=== PATIENT | male | born 1960 | race Caucasian/White ===

== ENCOUNTER 2024-01-03 10:40 | Inpatient (IN) | payer BC, SELFPAY ==
[2024-01-03 10:46] VITALS: BP 155/79
[2024-01-03 11:14] VITALS: BMI 27.3
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
[2024-01-03 11:25] LABS: % Basophils 0.7 % (0-2); % Eosinophils 1.1 % (0-6); % Immature Granulocytes 0.4 % (0-0.5); % Lymphocytes 12.2 % (20.5-51.1); % Monocytes 5.3 % (1.7-9.3); % Neutrophils 80.3 % (42.2-75.2); Absolute Basophils 0.1 10^3/uL (0-0.2); Absolute Eosinophils 0.1 10^3/uL (0-0.7); Absolute Lymphocytes 1.3 10^3/uL (1.2-3.4); Absolute Monocytes 0.6 10^3/uL (0.1-0.6); Absolute Neutrophils 8.3 10^3/uL (1.4-6.5); Hematocrit 45.8 % (39.0-52.0); Hemoglobin 14.8 g/dL (13.0-18.0); Mean Corp Hgb Conc. 32.3 g/dL (33.0-37.0); Mean Corpuscular Volume 89.6 fL (80.0-94.0); Mean Platelet Volume 8.9 fL (7.4-10.4); Nucleated Red Blood Cells % 0 % (-); Platelet Count 301 10^3/uL (130-400); Red Blood Cell Count 5.11 10^6/uL (4.70-6.10); Red Cell Dist. Width 12.8 % (11.5-14.5); White Blood Cell Count 10.4 10^3/uL (4.8-10.8)
[2024-01-03 11:58] LABS: Glycohemoglobin (HgbA1c) 5.5 % (4.0-5.6)
[2024-01-03 12:01] LABS: ALT (SGPT) 46 U/L (0-50); AST (SGOT) 55 U/L (17-59); Albumin 4.1 g/dl (3.5-5.0); Alkaline Phosphatase 134 U/L (38-126); Blood Urea Nitrogen 7 mg/dl (9-20); Calcium 9.6 mg/dl (8.4-10.2); Carbon Dioxide 26 mmol/L (22-30); Chloride 104 mmol/L (98-107); Estimated Creatinine Clearance > 125 ml/min; Glucose 121 mg/dl (70-99); HDL Cholesterol 78 mg/dl; LDL Cholesterol, Calculated 76 mg/dl; Magnesium 2.3 mg/dl (1.6-2.3); Potassium 4.3 mmol/L (3.5-5.1); Sodium 134 mmol/L (135-145); Total Bilirubin 0.8 mg/dl (0.2-1.3); Total Cholesterol 182 mg/dl (50-199); Total Protein 6.8 g/dl (6.3-8.2); Triglyceride 141 mg/dl (10-149); Very Low Density Lipoprotein 28 mg/dl (0-30); eGFR > 60.00
[2024-01-03 12:02] LABS: INR 0.91; PT 12.3 Sec (11.4-14.6)
[2024-01-03 12:03] LABS: APTT 32.5 Sec (23.4-35.0)
--- NOTE | 2024-01-03 12:52 | W.PN.UPDATE ---
Update Note
Progress Note Update
Pt seen and examined
Cath reviewed
Very pleasant 63 y/o male with multiple comorbidities admitted with CP and NSTEMI to [facility]
Cath with 60% left main, ostial cx and 90% rca lesions. Echo with preserved EF
I agree with plans for cabg to lad/om/pda
Risks, complications, benefits and alternatives reviewed in detail with pt
All questions answered
Pt appears to understand and wishes to proceed
Plan for cabg 01.04.24
--- NOTE | 2024-01-03 12:58 | CON.CAR ---
Addendum entered and electronically signed by Sami Gracia MD 01/03/24 15:40:
I saw and examined the patient.
The EXPLOSIVE ORDNANCE MANAGER's note was reviewed and I agree with the note.
Comment: 63 y/o male with hypertension, dyslipidemia, deprssion, prostate CA who is transferred from [facility] with plans for CABG for his multivessel CAD, after he presented with reports of chest pain with abnormal troponin (NSTEMI).
Reportedly cath showed multivessel CAD and he is here for CABG.
-CABG tomorrow
-High intensity statin
-Multivitamin given daily alcohol use
Original Note:
Consultation
Consultation Request
Date/Time Consultation Requested: 01/03/24 1144
Date/Time Consultation Performed: 01/03/24 1245
Requesting Provider: Evelin Miller NP
Performing Provider: Dorota LEARY for Dr. Gracia
Reason for Consultation: CAD
Medical History
-
Chief Complaint: chest discomfort
History of Present Illness:
63 y/o male with hypertension, dyslipidemia, deprssion, prostate CA who is transferred from [facility] with plans for CABG for his multivessel CAD, after he presented with reports of chest pain with abnormal troponin (NSTEMI). Records
from [facility] not in chart at the time of my assessment, so info in chart was from patient and CT surgery information. He is in no distress at the time of my assessment.
Past Medical History
Past Medical History: Cancer (prostate), HTN, Hypercholesterolemia and Psychiatric (depression)
Social History
Tobacco: Former Smoker (now chew tobacco)
Alcohol: Daily
Living: With Family (mom)
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
Family History
Family History: CAD (MOM 62, DAD 66)
Allergies / Home Medications
Allergy/AdvReac Type Severity Reaction Status Date / Time
No Allergy Information Allergy Unverified 01/03/24 10:44
Available
�Medication �Instructions �Recorded �Confirmed �Type
amlodipine 5 mg-benazepril 20 mg 1 cap PO DAILY 01/03/24 01/03/24 History
capsule
atorvastatin 20 mg tablet 20 mg PO DAILY 01/03/24 01/03/24 History
lorazepam 1 mg tablet 1 mg PO DAILY PRN anxiety 01/03/24 01/03/24 History
Review of Systems
-
History Source: Patient
All other systems: Negative unless noted
Cardiac: Chest Pain
Physical Exam
Vital Signs
Temp Pulse Resp BP Pulse Ox
98.7 F 75 18 155/79 97
01/03/24 10:46 01/03/24 10:46 01/03/24 10:46 01/03/24 10:46 01/03/24 10:46
Lab Results
01/03/24 11:14
01/03/24 11:14
Impression / Plan
-
CAD: severe as below
-plan is for CABG tomorrow
-continue ASA, statin
-pre-op testing pending, including EKG
-follow telemetry, BP's
Dyslipidemia:
-on statin
-lipids ordered
Hypertension:
-continue amlodipine and monitor
Data Reviewed
-
EKG: Other (EKG is pending)
Medical Tests (Nuc Med, Echo etc): Report Reviewed by me (Cardiac cath: left heart cath he was found to have 40% Ostial stenosis, 75% proximal and mid LAD stenosis, 90% stenosis of the ostial and proximal left circ, and 90% mid RCA with 70% mid to
distal junction stenosis.) and Other (echo report- normal EF with apical and septal wall hypokinesis. First echo showed a possible LV thrombus but with additional imaging it no longer was present.)
Labs: Labs Reviewed by me
--- NOTE | 2024-01-03 14:07 | CM ---
Chart reviewed. 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 The patient has a stairglide in the home. Patient has a sister who lives close to help care for his mother. Reviewed
preoperative and postoperative instructions and restrictions, along with showering guidelines. Patient is agreeable to a home visit by CT Transitional RN. Plan is for the patient to return home with CT Transitional RN
[2024-01-03 15:11] VITALS: BP 147/87
[2024-01-03 15:14] VITALS: BP 143/81
--- NOTE | 2024-01-03 15:17 | W.PN.UPDATE ---
Update Note
Progress Note Update
Procedure Type:�Isolated CABG
PERIOPERATIVE OUTCOME ESTIMATE %
Operative Mortality 0.575%
Morbidity & Mortality 3.78%
Stroke 0.725%
Renal Failure 0.266%
Reoperation 1.97%
Prolonged Ventilation 1.81%
Deep Sternal Wound Infection 0.133%
Long Hospital Stay (>14 days) 1.62%
Short Hospital Stay (<6 days)* 72.9%
Clinical Summary
Planned Surgery: Isolated CABG, Urgent, First cardiovascular surgery
Demographics: 63 year old, male, 83.8kg, 175cm, BMI: 27.4 kg/m�
Lab Values: Creatinine: 0.6 mg/dL, Hematocrit: 45.8%, WBC Count: 10.4 10�/�L, Platelet Count: 631404 cells/�L
Substance Abuse: Former smoker, Alcohol use: >=8 drinks/week
Risk Factors / Comorbidities: Hypertension, Family Hx of CAD
Cardiac Status: Ejection Fraction = 50%
Coronary Artery Disease: 3 vessels diseased, Left Main Stenosis >=50%, Non-ST Elevation MD, MD: 1 to 7 Days
Valve Disease: Trivial/Trace MR, Trivial/Trace TR
[2024-01-03] MEDS: ATIVAN 1 MG PO (15:43)
[2024-01-03 16:17] LABS: Hepatitis C Antibody Negative (Negative)
--- NOTE | 2024-01-03 17:05 | PTCARENOTE ---
taken via stretcher for pre op testing. NSR. HR 80-90s. anxious. ativan given as ordered. No reports of pain. for OR tomorrow am at 0830.
[2024-01-03] MEDS: LIPITOR 20 MG PO (18:02)
[2024-01-03 20:14] VITALS: BP 101/70
[2024-01-03 20:16] VITALS: BP 99/58
[2024-01-03] MEDS: THIAMINE INJECTION 200 MG IV (20:27)
[2024-01-03] MEDS: COLACE 100 MG PO (20:27)
[2024-01-03] MEDS: SENOKOT 8.59999999999999964 MG PO (20:27)
[2024-01-03 22:17] LABS: Urine Albumin Negative (Neg - Trace); Urine Bilirubin Negative (Negative); Urine Character Clear (Clear); Urine Color Yellow; Urine Glucose Negative (Negative); Urine Ketone Negative (Negative); Urine Leukocyte Negative (Negative); Urine Nitrite Negative (Negative); Urine Occult Blood Negative (Negative); Urine Specific Gravity 1.015 (<1.030); Urine Urobilinogen Negative (Neg - 1+)
[2024-01-03 22:38] VITALS: BP 123/88
[2024-01-03] MEDS: NSS (PRESERVATIVE FREE) 0.5 ML IV (22:40)
[2024-01-03] MEDS: ATIVAN 1 MG IV (22:40)
--- NOTE | 2024-01-03 23:47 | PTCARENOTE ---
Pt clipped and showered with 4% chlorhexidine. c/o chest pressure lasting only a few mins when bent over to wash legs in shower.. Pt states discomfort was a light pressure at left chest non radiating; rated a 3 out of 10. PA aware. At HS pt
requesting something to sleep and for anxiety. Ativan given via new iv site LFA. Sinus on telemetry.
[2024-01-04] VITALS (13 sets, daily range): BP systolic 74–136; BP diastolic 56–85; BMI 27.0
[2024-01-04] MEDS: LOPRESSOR 25 MG PO (05:51)
[2024-01-04] MEDS: PROTONIX 40 MG PO (05:51)
[2024-01-04] MEDS: MAGNESIUM OXIDE 500 MG PO (05:51)
[2024-01-04] MEDS: BACTROBAN 2% OINTMENT 1 APPLIC NASAL ×2 (05:52→20:19)
--- NOTE | 2024-01-04 06:13 | PTCARENOTE ---
Pt completed second shower with Chlorhexidine soap and wiped down with CHG wipes. preop medications given. am labs sent results pending. Pt denies chest discomfort this morning. Pt aware to remain npo.
[2024-01-04 06:29] LABS: Blood Urea Nitrogen 8 mg/dl (9-20); Carbon Dioxide 24 mmol/L (22-30); Chloride 106 mmol/L (98-107); Estimated Creatinine Clearance > 125 ml/min; Glucose 93 mg/dl (70-99); Potassium 3.9 mmol/L (3.5-5.1); Sodium 134 mmol/L (135-145); eGFR > 60.00
--- NOTE | 2024-01-04 07:36 | W.CVOR.SURPR ---
CVOR Surgeon Immed Pre Op
-
I have examined this patient prior to performance of the scheduled procedure.
The patient's condition is unchanged from the time of the dictated/written History and
Physical and the patient is able to undergo the scheduled procedure.
--- NOTE | 2024-01-04 08:32 | PTCARENOTE ---
Pt seen by Dr. Smith. Pt taken to OR @08:20, no change from last assessment.
[2024-01-04 08:43] LABS: ACT+ - POC 87 Seconds (82-134)
[2024-01-04 08:47] LABS: B.E. - POC -3.4 mmol/L; Glucose - POC 99 mg/dl (65-99); HCO3 - POC 22 mmol/L (21-29); Hematocrit - POC 42 % PCV (42-52); Hemodilution- POC Yes; Hemoglobin Calculated - POC 14.3; Ionized Calcium - POC 1.16 mmol/L (1.12-1.27); O2 Saturation %Calculated-POC 99.9 5 (92-96); PCO2 - POC 39 mmHg (35-45); PO2 - POC 359 mmHg (80-100); Potassium - POC 3.6 mmol/L (3.6-5.0); Sodium - POC 144 mmol/L (135-145); pH - POC 7.36 (7.35-7.45)
[2024-01-04] MEDS: COLACE PO (08:57)
[2024-01-04] MEDS: THIAMINE INJECTION IV (08:58)
[2024-01-04] MEDS: SENOKOT PO (08:58)
[2024-01-04] MEDS: FOLVITE PO (08:58)
[2024-01-04] MEDS: LEXAPRO PO (08:58)
[2024-01-04 09:25] LABS: Urine Albumin Negative (Neg - Trace); Urine Bilirubin Negative (Negative); Urine Character Clear (Clear); Urine Glucose Negative (Negative); Urine Ketone Negative (Negative); Urine Leukocyte Negative (Negative); Urine Nitrite Negative (Negative); Urine Occult Blood Negative (Negative); Urine Specific Gravity 1.015 (<1.030); Urine Urobilinogen Negative (Neg - 1+)
[2024-01-04 09:30] LABS: Urine Color Yellow
--- NOTE | 2024-01-04 10:16 | CM ---
Patient in OR today for planned CABG.
Reviewed initial assessment. Pt. resides w/ mother in a private, multi level home (+ stair glide). 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
Functionally, patient is indep/ w ADLs, mobility.
Anticipated DC plan is for home w/ CT Transitional Care RN.
CM to follow.
[2024-01-04 10:39] LABS: ACT+ - POC 517 Seconds (82-134)
[2024-01-04 11:18] LABS: B.E. - POC 0.7 mmol/L; Glucose - POC 132 mg/dl (65-99); HCO3 - POC 25 mmol/L (21-29); Hematocrit - POC 33 % PCV (42-52); Hemodilution- POC Yes; Hemoglobin Calculated - POC 11.2; Ionized Calcium - POC 0.98 mmol/L (1.12-1.27); O2 Saturation %Calculated-POC 99.9 5 (92-96); PCO2 - POC 38 mmHg (35-45); PO2 - POC 253 mmHg (80-100); Potassium - POC 4.3 mmol/L (3.6-5.0); Sodium - POC 139 mmol/L (135-145); pH - POC 7.42 (7.35-7.45)
[2024-01-04 11:22] LABS: ACT+ - POC 603 Seconds (82-134)
[2024-01-04 11:40] LABS: B.E. - POC -1.4 mmol/L; Glucose - POC 151 mg/dl (65-99); HCO3 - POC 23 mmol/L (21-29); Hematocrit - POC 34 % PCV (42-52); Hemodilution- POC Yes; Hemoglobin Calculated - POC 11.7; Ionized Calcium - POC 0.99 mmol/L (1.12-1.27); PCO2 - POC 37 mmHg (35-45); PO2 - POC 476 mmHg (80-100); Sodium - POC 141 mmol/L (135-145)
[2024-01-04 11:44] LABS: ACT+ - POC 482 Seconds (82-134)
[2024-01-04 12:14] LABS: B.E. - POC -4.9 mmol/L; Glucose - POC 87 mg/dl (65-99); HCO3 - POC 21 mmol/L (21-29); Hematocrit - POC 32 % PCV (42-52); Hemodilution- POC Yes; Hemoglobin Calculated - POC 10.9; Ionized Calcium - POC 1.29 mmol/L (1.12-1.27); O2 Saturation %Calculated-POC 95.4 5 (92-96); PCO2 - POC 43 mmHg (35-45); PO2 - POC 86 mmHg (80-100); Potassium - POC 3.7 mmol/L (3.6-5.0); Sodium - POC 142 mmol/L (135-145)
[2024-01-04 12:15] LABS: ACT+ - POC 107 Seconds (82-134)
--- NOTE | 2024-01-04 12:20 | W.PN.UPDATE ---
Update Note
Progress Note Update
63-year-old male presenting to [facility] with chest pain was found to have multivessel disease and was transferred for a CABG with Dr. Smith today.
IV fluids: 2600
U.O.:� 550
UF:� 1400
Blood:�None
Wires:�V wires
Inotropes:�None
Pressors:�Levophed
Sedatives:�Precedex
�
NEURO: sedated on precedex, pupils +1mm B/L
RESP: #8OT @22cm> 12/600/60/5Lungs clear B/L. 2 mediastinal (50cc on arrival) and R/L pleural (65cc on arrival) chest tubes to -20cm suction. Sanguineous drainage
CV: RRR +S1, S2, no S3, no�rub, no murmur. Dermabond to median sternotomy.
ABD: round, soft, no BS
EXT: no edema, +2/4 DP pulses B/L, no femoral bruit, RLE DEE wrap intact; Left radial A-line intact
: Ag with clear yellow urine
�
A/P: POD #0 s/p CABG x3 (COATES-LAD, QUE off COATES to OM1, SVG to PDA)
LURDES: EF�approximately 45% with mild/moderate global hypokinesis.
- wean and extubate
-Monitor chest tube output
-Follow-up postoperative labs
-Start aspirin 81 mg 6 hours postop.
�
# acute surgical blood loss anemia-expected
- trend CBC
�
# Hyperglycemia
- insulin infusion x 24h
�
# Hyperlipidemia
- resume�statin when tolerating oral medications
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
--- NOTE | 2024-01-04 13:16 | W.PN.CT.SURG ---
CT Surgery Operative Note
-
Pre-op Diagnosis: left main, 3 vcad
exertional angina
Post-op Diagnosis: Same
Procedure: Cabg x 3
andre- lad
renee- om
svg - pda
on pump
RSF
Primary Surgeon: Sarah
Assisting Surgeons: Asmita, Payton - leg and chest
Specimen: None
Cultures: None
Complications / Blood Loss: None
Findings: Ketan revealed global lv dysfunction ef 35, post revasc 45, no new wma
good conduit
thickend causey throughout
adequate targets
[2024-01-04 13:33] LABS: Hematocrit 35.6 % (39.0-52.0); Hemoglobin 11.8 g/dL (13.0-18.0); Platelet Count 261 10^3/uL (130-400)
[2024-01-04 13:35] LABS: HCO3 22.7 mmol/L (21-28); O2 Saturation % 97.7 % (94-98); PCO2 42 mmHg (35-48); PO2 158 mmHg (83-108); Potassium 3.8 mMOL/L (3.5-5.1); Sodium 142 mMOL/L (136-145); pH 7.34 (7.35-7.45)
[2024-01-04 13:37] LABS: Glucose - Point of Care 96 mg/dl (70-99)
[2024-01-04 13:43] LABS: INR 1.37; PT 16.6 Sec (11.4-14.6)
[2024-01-04 13:53] LABS: Blood Urea Nitrogen 8 mg/dl (9-20); Estimated Creatinine Clearance > 125 ml/min; Glucose 95 mg/dl (70-99); Magnesium 2.5 mg/dl (1.6-2.3)
[2024-01-04] MEDS: KCL 50 IV (13:53)
[2024-01-04] MEDS: NSS 500 IV (13:54)
[2024-01-04] MEDS: TYLENOL PO (13:55)
[2024-01-04] MEDS: ANCEF 10 IV ×2 (13:55)
[2024-01-04] MEDS: NEURONTIN PO ×2 (13:55→16:18)
--- NOTE | 2024-01-04 13:57 | PTCARENOTE ---
Received pt from CVOR team. Intubated and sedated per anesthesia. #8 ETT at 22 cm rt lip. SIMV 40% rate 12 tv 600 psv 5 peep 5 pulse ox 99%. Bloody secretions noted with oral care. SR with first degree AV block on monitor. Epicardial wire to
temporary pacemaker box, however box off on arrival. Chest tubes x 3 to - 20 cm suction. No crepitus or air leak noted. Abdomen benign. Ag draining clear yellow urine in large amounts. Sternal Incision, well approximated and surgical glue
present. RT groin puncture site intact. RT SVG with Harpal wrap intact. Pulses palpable. Insulin and Levophed infusing on arrival.
[2024-01-04] MEDS: OFIRMEV 100 IV (14:08)
[2024-01-04] MEDS: DILAUDID 0.5 MG IV (14:08)
[2024-01-04] MEDS: VERSED 0.5 MG IV ×2 (14:17→15:01)
--- NOTE | 2024-01-04 14:21 | PTCARENOTE ---
Peep increased to [address] Smith at this time . Pt agitated and waking up, not following commands at present. Precedex increased per MD order, and versed administered at this time. Safe environment promoted.
[2024-01-04 14:37] LABS: Glucose - Point of Care 130 mg/dl (70-99)
--- NOTE | 2024-01-04 14:44 | W.PN.CD ---
Addendum entered and electronically signed by Sami Gracia MD 01/04/24 16:07:
I saw and examined the patient.
The INVESTMENTS MANAGER's note was reviewed and I agree with the note.
Comment: 63M with HTN, HLD, and prostate ca transferred from [facility] for CABG evaluation.
- wean sedation and inotropes
- continued post cabg care
Original Note:
Today's Communication / Plan
-
Follow telemetry
Extubation per CTS
Impression / Plan
-
BACKGROUND: 63M with HTN, HLD, and prostate ca transferred from [facility] for CABG evaluation
NSTEMI
CAD S/P CABG x 3 (COATES-LAD, QUE-OM, SVG-PDA) on 01/04/[address] Smith
-EF 35%, post 45% without new WMA
-EKG stable new iRBBB
-Follow telemetry
Dyslipidemia
-LDL above goal, atorvastatin increased to 40mg daily
HTN, agents on hold, follow BP
SUBJECTIVE:
Intubated and sedated on mechanical ventilation
Physical Exam
Vital Signs/Labs
Vital Signs
Temp Pulse Resp BP Pulse Ox
98.9 F 89 14 136/75 99
01/04/24 14:23 01/04/24 14:15 01/04/24 14:15 01/04/24 07:32 01/04/24 14:27
01/03/24 01/04/24 01/05/24
06:59 06:59 06:59
Actual Weight 83 kg
01/04/24 13:22
PT 16.6 Sec (11.4-14.6) H 01/04/24 13:22
INR 1.37 01/04/24 13:22
APTT 32.0 Sec (23.4-35.0) 01/04/24 13:22
Magnesium 2.5 mg/dl (1.6-2.3) H 01/04/24 13:22
Triglycerides 141 mg/dl (10-149) 01/03/24 11:14
LDL Cholesterol, Calc 76 mg/dl 01/03/24 11:14
VLDL Cholesterol, Calc 28 mg/dl (0-30) 01/03/24 11:14
HDL Cholesterol 78 mg/dl 01/03/24 11:14
Physical Exam
Constitutional: No acute distress
EENT: Anicteric and Moist mucous membranes
Cardiovascular: Pedal edema is absent, S1S2 is normal and Murmur/rub/gallop absent
Respiratory: Lungs clear to auscul.
GI: Soft, Distention absent and Flat
Neuro/Psych: Other (sedated)
Other: Skin (warm and dry)
Data Reviewed
-
Date of Service: January 04, 2024
[2024-01-04] MEDS: ALBUMIN 5% 250 IV ×3 (15:39→15:43)
[2024-01-04 15:57] LABS: Glucose - Point of Care 130 mg/dl (70-99)
--- NOTE | 2024-01-04 16:01 | PTCARENOTE ---
Pt sustaining wakefulness more often. Following commands. Decision to attempt CPAP made. Will obtain ABG as per protocol and follow.
[2024-01-04] MEDS: LIPITOR PO (16:18)
[2024-01-04 16:40] LABS: Hematocrit 30.7 % (39.0-52.0); Hemoglobin 10.3 g/dL (13.0-18.0); Platelet Count 218 10^3/uL (130-400)
[2024-01-04 16:42] LABS: B.E. -2.7 mmol/L; HCO3 22.6 mmol/L (21-28); Ionized Calcium 1.11 mMOL/L (1.15-1.33); O2 Saturation % 98.1 % (94-98); PCO2 40 mmHg (35-48); PO2 119 mmHg (83-108); Potassium 4.2 mMOL/L (3.5-5.1); pH 7.36 (7.35-7.45)
[2024-01-04 16:58] LABS: Glucose - Point of Care 100 mg/dl (70-99)
--- NOTE | 2024-01-04 17:02 | PTCARENOTE ---
Cpap gas withing parameters. Pt extubated at 1700 to 6 L NC. Bp remains labile. Levophed titrated as needed.
[2024-01-04] MEDS: CALCIUM CHLORIDE 10% SYRINGE 50 ML IV (17:06)
[2024-01-04] MEDS: CALCIUM CHLORIDE 10% SYRINGE 50 MG IV (17:06)
[2024-01-04] MEDS: ROXICODONE 5 MG PO ×2 (17:10→21:15)
[2024-01-04] MEDS: LOW STRENGTH ASPIRIN 81 MG PO (17:10)
[2024-01-04 18:04] LABS: Glucose - Point of Care 76 mg/dl (70-99)
[2024-01-04] MEDS: ANCEF 5 IV (18:05)
[2024-01-04 19:08] LABS: Glucose - Point of Care 103 mg/dl (70-99)
[2024-01-04 20:02] LABS: Glucose - Point of Care 101 mg/dl (70-99)
[2024-01-04] MEDS: THIAMINE INJECTION 200 MG IV (20:19)
[2024-01-04] MEDS: SENOKOT-S 1 TABLET PO (20:19)
--- NOTE | 2024-01-04 20:30 | PTCARENOTE ---
Patient received resting in bed watching television. Patient A+A+Ox3. No neurological deficits noted. No c/o headache, dizziness or lightheadedness. Calm and cooperative with care. No s/s of respiratory distress. O2 at 4L via NC. SaO2 98%.
No c/o SOB. I.S. 1500 ml. Three chest tubes - Intact and patent - Mediastinal and Right and Left Pleural - 10-30 ml red drainage - No air leak, tidaling or crepitus noted. Chest tube dressing intact. Sinus Rhythm. Heart rate 70's. V- Wire to
box. Levophed gtt 4 mcq/min (15 ml/hr). CVP 10. No c/o chest pain, pressure or discomfort. Normoactive bowel sounds. No BM. No c/o nausea. No vomiting. Patient tolerating ice chips and sips of water. Ag catheter - Temperature sensing -
Intact and patent - Outputs as documented. Positive, palpable pulses. No c/o back or flank pain. Right I.J. Cordis with [place] catheter. Left radial arterial line. Sternal incision - Intact - Surgical adhesive. Right groin intact. Right knee
incision with surgical adhesive - Coban Harpal Wrap intact. Assessment as documented.
[2024-01-04 21:05] LABS: Glucose - Point of Care 101 mg/dl (70-99)
[2024-01-04] MEDS: FLEXERIL 5 MG PO (21:15)
[2024-01-04] MEDS: SODIUM BICARBONATE 50 MEQ IV (21:55)
[2024-01-04] MEDS: CALCIUM CHLORIDE 10% SYRINGE 60 MG IV (22:07)
[2024-01-04 22:19] LABS: Glucose - Point of Care 95 mg/dl (70-99)
[2024-01-04] MEDS: NEURONTIN 100 MG PO (22:29)
[2024-01-04] MEDS: TYLENOL 1000 MG PO (22:29)
[2024-01-04] MEDS: LEVOPHED 250 IV (22:35)
--- NOTE | 2024-01-04 23:30 | PTCARENOTE ---
Roxicodone 5 mg PO for pain management. 1 AMP Sodium Bicarbonate 50 mEq IV administered per PA order. Calcium chloride 1,000mg/50ml over 1hr administered per PA order. Levophed gtt titrated off. O2 at 3L via NC. SaO2 97%. Patient resting in
bed without difficulty. Assessment as documented.
[2024-01-05] VITALS (46 sets, daily range): BP systolic 79–123; BP diastolic 45–69; BMI 27.1
[2024-01-05 00:19] LABS: Glucose - Point of Care 94 mg/dl (70-99)
[2024-01-05] MEDS: DILAUDID 0.25 MG IV (00:25)
--- NOTE | 2024-01-05 01:34 | W.PN.CT ---
Today's Communication / Plan
-
Plan:
-No major issues overnight. Hemodynamically and neurologically intact
-Successfully extubated 01/04/24 @ 1700
-Weaned off Levophed gtt overnight. On insulin gtt per protocol
-Will consider holding AM dose of Lopressor given hypotension overnight
-U/O since OR 3010 mL
-Cont. current meds (ASA, Amiodarone, Lipitor, Thiamine, Folic Acid; will add Plavix)
-Monitor chest tube output: 1med 110/230, R/L pleural 165/455. Will consider d/c of med and transition pleurals to bulb suction
-D/C'd SLIC and A-line this AM @ 0545
-D/C insulin gtt per protocol, and transfer to tele phase
-D/C gould catheter later today, given hx prostate ca
-Maintain cordis
-Maintain temporary PW (will cut before d/c home)
-OOB into chair/Ambulate
-Encourage use of IS
-Wean off of O2 as tolerated
-Monitor for Delirium Tremens given daily 10 beers consumption
Assessment / Plan
-
Assessment:
-S/P Cabg x 3 (andre- lad, renee- om, svg - pda, on pump), by Dr. Smith, 01/04/24, pod#1
-Severe 3v CAD
-USA
-ICM (LVEF 35%, improved to 45% postop per intraop LURDES)
-Scattered mild atheroma of desc. aorta and focal atheroma of aortic arch
-HTN
-Hyperlipidemia
-Depression
-Former tobacco use
-Daily ETOH use (10 beers/day)
-Hx prostate ca S/P prostatectomy
-S/p repair of left shoulder fx
-Acute postop blood loss/Anemia (stable without blood transfusion)
-Acute postop atelectasis/pleural effusion
-Acute postop hypovolemia
-Acute postop EKG consistent with acute pericarditis (+rub)
Discussed patient care with: Cardiology, Nursing, Respiratory Therapy, Pharmacy and Care Team
Subjective
Procedure
S/P Cabg x 3 (andre- lad, renee- om, svg - pda, on pump), by Dr. Smith, 01/04/24
-
Date of Service: January 05, 2024
Pt c/o incisional pain, otherwise feels well
Objective Data
-
PT 16.6 Sec (11.4-14.6) H 01/04/24 13:22
INR 1.37 01/04/24 13:22
APTT 32.0 Sec (23.4-35.0) 01/04/24 13:22
Vital Signs
Vital Signs
Temp Pulse Resp BP Pulse Ox
99.2 F 82 20 100/69 94
01/05/24 00:20 01/05/24 00:30 01/05/24 00:30 01/05/24 00:20 01/05/24 00:30
CT Intake/Output/Weight
01/04/24 01/04/24 01/05/24
06:59 18:59 06:59
Intake Total 642.5 / 1185.5 543.0 / 1185.5
Output Total 2810 / 3425 615 / 3425
Balance -2167.5 / -2239.5 -72.0 / -2239.5
SaO2: 94 (2L)
Physical Exam
-
General: Awake, Oriented and AOx3
Cardiovascular: Rub (acute pericarditis)
Respiratory: Decreased Breath Sounds
Sternum: Stable
Incision: Clean, Dry, Intact and Dressing Intact
Extremities: No Edema
Data Reviewed
-
Lab Results: Results Reviewed
Medications: Active Meds Reviewed
Chest X-Ray: Report Reviewed and Image Reviewed
ECG: Report Reviewed and Image Reviewed
[2024-01-05 02:06] LABS: Glucose - Point of Care 93 mg/dl (70-99)
[2024-01-05] MEDS: ANCEF 5 IV ×2 (03:13→11:10)
[2024-01-05] MEDS: ROXICODONE 5 MG PO ×2 (03:20→07:56)
[2024-01-05 04:07] LABS: Glucose - Point of Care 81 mg/dl (70-99)
[2024-01-05 04:37] LABS: Hematocrit 29.6 % (39.0-52.0); Hemoglobin 9.4 g/dL (13.0-18.0); Mean Corp Hgb Conc. 31.8 g/dL (33.0-37.0); Mean Corpuscular Hgb 29.1 pg (27.0-31.0); Mean Corpuscular Volume 91.6 fL (80.0-94.0); Mean Platelet Volume 10.1 fL (7.4-10.4); Platelet Count 225 10^3/uL (130-400); Red Blood Cell Count 3.23 10^6/uL (4.70-6.10); Red Cell Dist. Width 13.1 % (11.5-14.5); White Blood Cell Count 17.7 10^3/uL (4.8-10.8)
[2024-01-05] MEDS: TYLENOL 1000 MG PO ×3 (05:00→21:36)
[2024-01-05 05:09] LABS: Blood Urea Nitrogen 12 mg/dl (9-20); Calcium 9.1 mg/dl (8.4-10.2); Carbon Dioxide 22 mmol/L (22-30); Chloride 109 mmol/L (98-107); Estimated Creatinine Clearance > 125 ml/min; Glucose 79 mg/dl (70-99); Magnesium 2.1 mg/dl (1.6-2.3); Potassium 4.5 mmol/L (3.5-5.1); Sodium 137 mmol/L (135-145); eGFR > 60.00
[2024-01-05 06:25] LABS: Glucose - Point of Care 93 mg/dl (70-99)
--- NOTE | 2024-01-05 06:30 | PTCARENOTE ---
Patient A+A+Ox3. No neurological deficits noted. AM lab work collected and sent. Portable CXR completed. Patient de-lined. Patient given CHG bath and linens changed. Standing scale weight 83.1 kg. OOB to chair. Assessment/Interventions as
documented.
--- NOTE | 2024-01-05 07:33 | W.PN.ANS.POP ---
Anesthesia Post Operative
- Anesthesia Post Op Note
Vital Signs Stable-See Nursing Note: Yes
Airway Patent: Yes
Adequate Pain Control: Yes
Change in Mental Status: No
Current Postoperative Nausea & Vomiting: No
Anesthesia Complications: No
General Anesthetic Recall: No
Unplanned Admission: No
Post Op Hydration Adequate: Yes
--- NOTE | 2024-01-05 07:54 | W.PN.CD ---
Today's Communication / Plan
-
-Weaning of pressors and likely start beta-blockers
-Beta-blockers for coronary disease and for alcohol withdrawal.
-Multivitamins and glucose
-Amiodarone
Impression / Plan
-
BACKGROUND: 63M with HTN, HLD, and prostate ca s/p CABG 01/04/24)
NSTEMI
CAD S/P CABG x 3 (COATES-LAD, QUE-OM, SVG-PDA) on 01/04/[address] Smith
-EF 35%, post 45% without new WMA
-EKG stable new iRBBB
-Out of bed to the chair
-IS encouraged
-Wean off pressors
-Likely start beta-blockers from tomorrow if pressors are off
Dyslipidemia
-LDL above goal, atorvastatin increased to 40mg daily
HTN, agents on hold, follow BP
High risk for alcohol withdrawal with history of 10 beers per day
SUBJECTIVE:
Feeling better. S/p extubation on 01/04/2024.
Physical Exam
Vital Signs/Labs
Vital Signs
Temp Pulse Resp BP Pulse Ox
99.2 F 98 22 102/62 95
01/05/24 05:00 01/05/24 06:45 01/05/24 06:15 01/05/24 04:10 01/05/24 06:00
01/04/24 01/05/24 01/06/24
06:59 06:59 06:59
Actual Weight 83 kg 83.1 kg
01/05/24 04:00
01/05/24 04:00
PT 16.6 Sec (11.4-14.6) H 01/04/24 13:22
INR 1.37 01/04/24 13:22
APTT 32.0 Sec (23.4-35.0) 01/04/24 13:22
Magnesium 2.1 mg/dl (1.6-2.3) 01/05/24 04:00
Triglycerides 141 mg/dl (10-149) 01/03/24 11:14
LDL Cholesterol, Calc 76 mg/dl 01/03/24 11:14
VLDL Cholesterol, Calc 28 mg/dl (0-30) 01/03/24 11:14
HDL Cholesterol 78 mg/dl 01/03/24 11:14
Physical Exam
Constitutional: No acute distress and Comfortable
EENT: Anicteric and Moist mucous membranes
Cardiovascular: Rhythm & rate is regular, JVD present and Systolic murmur present
Respiratory: Respiratory effort normal, Lungs clear to auscul. and Crackles Present
GI: Soft, Non tender and Normal bowel sounds
Neuro/Psych: Alert and AO x 3
Data Reviewed
-
Date of Service: January 05, 2024
Medical Decision Making: Reviewed Test Results and Independent Historian Assessment
EKG: Tracing Personally Visualized and interpreted and Report Reviewed by me
Echo: Report Reviewed by me
Labs: Labs Reviewed by me
Old Records: Reviewed
Critical Care Time (in minutes): 35
[2024-01-05] MEDS: THIAMINE INJECTION 200 MG IV ×2 (07:55→19:43)
[2024-01-05] MEDS: PROTONIX 40 MG PO (07:55)
[2024-01-05] MEDS: PLAVIX 75 MG PO (07:56)
[2024-01-05] MEDS: LEXAPRO 10 MG PO (07:56)
[2024-01-05] MEDS: LOW STRENGTH ASPIRIN 81 MG PO (07:56)
[2024-01-05] MEDS: MAGNESIUM OXIDE 500 MG PO ×2 (07:56→19:43)
[2024-01-05] MEDS: FLEXERIL 5 MG PO (07:57)
[2024-01-05] MEDS: SENOKOT-S 1 TABLET PO ×2 (07:57→19:43)
[2024-01-05] MEDS: FOLVITE 1 MG PO (07:57)
[2024-01-05] MEDS: NEURONTIN 100 MG PO ×3 (07:57→21:36)
[2024-01-05] MEDS: BACTROBAN 2% OINTMENT 1 APPLIC NASAL ×2 (07:58→19:43)
[2024-01-05] MEDS: LIDOCAINE 4% PATCH 1 PATCH TOPICAL (07:58)
[2024-01-05 08:19] LABS: Glucose - Point of Care 96 mg/dl (70-99)
[2024-01-05] MEDS: FLOMAX 0.400000000000000022 MG PO (08:53)
[2024-01-05] MEDS: PACERONE 200 MG PO ×2 (08:53→16:35)
[2024-01-05] MEDS: TOPROL XL 12.5 MG PO (08:53)
--- NOTE | 2024-01-05 10:00 | PTCARENOTE ---
Ag catheter dc. Urinal provided: hx of prostate ca with prostatectomy: attends on patients hx of stress incontinence.
--- NOTE | 2024-01-05 10:12 | W.PN.INTV ---
Today's Communication / Plan
Recommendations
Up OOB as tolerated
Pain control
Monitor abdominal pain
Wean off of supplemental oxygen while maintaining SpO2 >90-94%
Outpatient pulmonary follow-up for his lung nodules
Assessment
-
Assessment: 63-year-old male former tobacco smoker with a past medical history of depression, hyperlipidemia, hypertension and prostate cancer s/p prostatectomy who presented to outside hospital ([facility]) with chest pain. Patient
initially went to outside hospital on 12/31/2023 due to chest pain X 8 days. Chest pain radiated to left arm with strenuous activity and resolved with rest. He was brought to [facility] at [facility] and found to have multivessel disease
includin% Ostial stenosis, 75% proximal and mid LAD stenosis, 90% stenosis of the ostial and proximal left circ, and 90% mid RCA with 70% mid to distal junction stenosis. Echo performed there showed preserved LVEF with apical and septal wall
hypokinesis. Patient transferred here to the hospital for cardiothoracic evaluation. On 01/04/2024, patient underwent CABG x3 and LURDES revealed global LV dysfunction with reduced LVEF at 35%, and post revascularization LVEF improved to 45% with no
new WMA. Patient tolerated procedure well with no immediate complications and was transferred to CVICU postoperatively for further care. Critical care services consulted for additional management/recommendations.
Chronic conditions [employer]: CAD, history of prostate cancer, hypertension, hypercholesterolemia
Impression:
#Multivessel CAD s/p CABG x 3 (POD#1)
#Anemia
#Former tobacco smoker
#Multiple pulmonary nodules
Plan:
Pt tolerated extubation on 01/04/2024
Continue supplemental O2 and wean as tolerated to maintain SpO2 >90-94%
Encourage incentive spirometer
Reading has been removed
Maintain MAP>65
Replete electrolytes with K>4, Mg>2
Monitor chest tube output (L & R pleural chest tubes to negative bulb suction)
Monitor hemoglobin
Monitor platelet count and coags
Transfuse blood product if needed
CT surgery managing chest tubes
Monitor blood sugar with goal BG 140-180mg/dL
Insulin drip per protocol
Aspiration precautions
DVT prophylaxis
Early nutrition
Early mobilization
Follow up CT chest recommended for his pulmonary nodules, all of which are <6mm and appear low risk. Plus, the calcified nodule in his superior LLL is a calcified granuloma, meaning this specific nodule does not need additional radiographic
surveillance. I would recommend repeat CT chest in 3-6 months given pt is a former tobacco smoker and has Hx of prostate cancer.
Patient remains CVICU status due to insulin drip. Terminal System Operator service will continue to follow along while he remains in the CVICU. Continue hourly POCT glucose checks while on insulin gtt.
Critical care statement: A total of 38 minutes of critical care time was provided for this patient today. This includes management of ventilator, spontaneous breathing trial, arterial blood gases, pressors, of unstable vital signs, evaluation of the
patient at bedside, reviewing the patient's pertinent medical records including radiographs, microbiology, laboratory evaluations, and discussion with primary team and critical care nursing.
Data:
CXR 01-05-2024:
1. Interval extubation.
2. Interval decrease in mild subsegmental atelectasis in the lower lungs.
3. Stable mild left to right mediastinal shift with moderate volume loss in the right lung.
4. Chest tubes and right IJ central venous catheter remaining in place following CABG surgery.
CXR 01-04-2024:
1. Endotracheal tube, chest tubes, and right IJ central venous catheter in place following CABG surgery.
2. Moderate left to right mediastinal shift and large bilateral pericardial fat pads which appears unchanged from before surgery.
3. Mildly decreased bilateral lung volumes with multiple thin bands of subsegmental atelectasis in the mid and lower lungs.
CT Chest without Contrast 01-03-2024:
No aortic aneurysm. Normal aortic branch pattern. Minor calcified plaque of the aortic branches without stenosis.
There is a large amount of high density along the coronary arteries, consistent with calcified plaque.
Probable combination of mild atelectasis and nonspecific bronchiolitis in the posterior right lung base.
Calcified granulomas.
There are a few small solid and groundglass nodules, as described measuring up to 5 mm. Nonspecific. Consider follow-up in one year if the patient is at increased risk. Pulmonary nodule advisory Board notified by radiology department front office
staff.
Subjective Dataa
Subjective Data
Date of Service:
Date of Service: January 05, 2024
Chief Complaint: Terminal System Operator Follow Up and Pulmonary Follow Up
Subjective:
Patient seen this morning. He is dizzy upon standing and has some postoperative chest pain. Also has some abdominal discomfort. He remains on insulin at 0.5units/hr. He is on nasal cannula at 3L/min. he has a right and left pleural chest tube to
bulb otherwise mediastinal chest tube have been removed. He otherwise denies headache, nausea, fevers or chills.
Review of Systems
General: Other (Negative unless mentioned above)
Objective Data
Data Reviewed
Vital Signs / I&O / Oxygen:
Vital Signs
Temp Pulse Resp BP Pulse Ox
98 F 83 18 102/65 96
01/05/24 08:00 01/05/24 08:51 01/05/24 08:00 01/05/24 08:51 01/05/24 08:00
Intake and Output
01/04/24 01/05/24 01/06/24
06:59 06:59 06:59
Intake Total 480 / 480 1287.1 / 1287.1 346 / 346
Output Total 3765 / 3765 90 / 90
Balance 480 / 480 -2477.9 / -2477.9 256 / 256
SaO2 [SIMV] 99
SaO2 96
Nasal Cannula flow liters per 3
minute
Physical Exam
General: Respiratory Distress (negative) and Comfortable
HEENT: Normocephalic, Anicteric and Moist Mucous Membranes
Cardiovascular: S1-S2 and Peripheral Edema (negative)
Respiratory: Wheeze (negative), Crackles (Bibasilar), Rhonchi (negative), Non-Labored Respirations and Chest Tube (Right and left pleural chest tubes to bulb suction)
GI: Soft, Non Distended, Non Tender and Normal Bowel Sounds
Neurology: AO x 3 and Tremors (negative)
Skin: Warm and Dry
Labs/Micro/Reports
Lab Data
01/05/24 04:00
01/05/24 04:00
Laboratory Results
01/04/24 01/04/24
13:22 16:29
PT 16.6 H
INR 1.37
APTT 32.0
pH 7.34 L 7.36
pCO2 42 40
pO2 158 H 119 H
HCO3 22.7 22.6
O2 Delivery Level Not Reportable
[2024-01-05 10:33] LABS: Glucose - Point of Care 97 mg/dl (70-99)
--- NOTE | 2024-01-05 11:00 | PTCARENOTE ---
Assisted back to bed with assist of 2. Right and left pleural chest tubes to bulb drain suction and mediastinal chest tube dc. 3l nasal canula
--- NOTE | 2024-01-05 12:00 | PTCARENOTE ---
Epicardial v wire insulated
[2024-01-05] MEDS: TORADOL 15 MG IV (12:40)
[2024-01-05] MEDS: ZOFRAN 4 MG IV (12:45)
[2024-01-05 12:51] LABS: Glucose - Point of Care 94 mg/dl (70-99)
[2024-01-05 13:29] LABS: Glucose - Point of Care 157 mg/dl (70-99)
[2024-01-05] MEDS: NSS IV (16:33)
[2024-01-05] MEDS: ProAmatine 10 MG PO (17:27)
[2024-01-05] MEDS: LIPITOR 40 MG PO (17:28)
--- NOTE | 2024-01-05 17:30 | PTCARENOTE ---
Patint having light headedness and orthostatic hypotension with standing: Miguel Cain aware. New orders received. Bladder scanned for 20ml
[2024-01-05 17:33] LABS: Glucose - Point of Care 136 mg/dl (70-99)
--- NOTE | 2024-01-05 18:37 | PTCARENOTE ---
Remains oob in chair: patient did have an asymptomatic burst of a fibb with rates to 140's around 10 seconds: Payton Tian PA-c aware of same . No new orders at this time
--- NOTE | 2024-01-05 20:00 | PTCARENOTE ---
patient received sitting OOB to chair, complaining of feeling dizzy. NSR on monitor, afebrile, blood pressure 80s/50s. palpable pulses throughout, trace anasarca noted. Lungs diminished bibasilar, pulse ox 93% on 3L. Abdomen round with
hypoactive bowel sounds. Brief dry. Sternal, right groin and right knee incisions approximated. V wires insulated and pleural chest tubes to bulb suction. RIJ cordis, #18 g in left forearm flushed and patent. Assisted back to bed, 1 amp sodium
bicarb given as ordered. Plan of care discussed, call love within reach.
[2024-01-05] MEDS: SODIUM BICARBONATE 50 MEQ IV (20:12)
[2024-01-05 21:36] LABS: Glucose - Point of Care 128 mg/dl (70-99)
[2024-01-06] VITALS (31 sets, daily range): BP systolic 104–163; BP diastolic 53–85; BMI 28.0
[2024-01-06 04:29] LABS: Ionized Calcium 1.17 mMOL/L (1.15-1.33)
[2024-01-06 04:35] LABS: Hematocrit 25.8 % (39.0-52.0); Hemoglobin 8.3 g/dL (13.0-18.0); Mean Corp Hgb Conc. 32.2 g/dL (33.0-37.0); Mean Corpuscular Hgb 29.4 pg (27.0-31.0); Mean Corpuscular Volume 91.5 fL (80.0-94.0); Mean Platelet Volume 9.6 fL (7.4-10.4); Platelet Count 174 10^3/uL (130-400); Red Blood Cell Count 2.82 10^6/uL (4.70-6.10); Red Cell Dist. Width 13.1 % (11.5-14.5); White Blood Cell Count 13.4 10^3/uL (4.8-10.8)
--- NOTE | 2024-01-06 04:49 | W.PN.CT ---
Today's Communication / Plan
-
Plan:
-No major issues overnight. Hemodynamically and neurologically intact
-Off all drips
-Noted to be hypotensive during the day yesterday after receiving, Flomax and BB. BP improved overnight
-Avoid further BB, Flomax today
-Noted to be tachycardic (120) with ambulation, will add back amiodarone to avoid a-fib
-Cont. current meds (ASA, Plavix, Amiodarone, Lipitor, Thiamine, Folic Acid, holding narcotics)
-Consider d/c of chest tubes: R pleural 20/30, L pleural
-Noted to be hyponatremic today, 133. Fluid restriction
-Maintain cordis another day
-Maintain temporary PW (will cut before d/c home)
-OOB into chair/Ambulate
-Encourage use of IS
-Wean off of O2 as tolerated
-Monitor for Delirium Tremens given daily 10 beers consumption
Assessment / Plan
-
Assessment:
-S/P Cabg x 3 (andre- lad, renee- om, svg - pda, on pump), by Dr. Smith, 01/04/24, pod#2
-Severe 3v CAD
-USA
-ICM (LVEF 35%, improved to 45% postop per intraop LURDES)
-Scattered mild atheroma of desc. aorta and focal atheroma of aortic arch
-HTN
-Hyperlipidemia
-Depression
-Former tobacco use
-Daily ETOH use (10 beers/day)
-Hx prostate ca S/P prostatectomy
-S/p repair of left shoulder fx
-Acute postop blood loss/Anemia (stable without blood transfusion)
-Acute postop atelectasis/pleural effusion
-Acute postop hypovolemia
-Acute postop EKG consistent with acute pericarditis (+rub)
-Acute postop hypotension/orthostasis
-Acute postop hyponatremia, 133
Discussed patient care with: Cardiology, Nursing, Respiratory Therapy, Pharmacy and Care Team
Subjective
Procedure
S/P Cabg x 3 (andre- lad, renee- om, svg - pda, on pump), by Dr. Smith, 01/04/24
-
Date of Service: January 06, 2024
Pt c/o incisional pain, otherwise feels well
Objective Data
-
PT 16.6 Sec (11.4-14.6) H 01/04/24 13:22
INR 1.37 01/04/24 13:22
APTT 32.0 Sec (23.4-35.0) 01/04/24 13:22
Vital Signs
Vital Signs
Temp Pulse Resp BP Pulse Ox
97.5 F 80 18 132/66 92
01/06/24 04:00 01/06/24 04:30 01/05/24 16:19 01/06/24 04:30 01/05/24 20:00
CT Intake/Output/Weight
01/05/24 01/05/24 01/06/24
06:59 18:59 06:59
Intake Total 644.6 / 1287.1 567 / 1047 480 / 1047
Output Total 955 / 3765 385 / 430 45 / 430
Balance -310.4 / -2477.9 182 / 617 435 / 617
SaO2: 92 (2L)
Physical Exam
-
General: Awake, Oriented and AOx3
Cardiovascular: Regular rate & rhythm, No Murmurs, No Rub and No Gallop
Respiratory: Decreased Breath Sounds (at bases, otherwise clear)
Sternum: Stable
Incision: Clean, Dry, Intact and Dressing Intact
Extremities: No Edema
Data Reviewed
-
Lab Results: Results Reviewed
Medications: Active Meds Reviewed
Chest X-Ray: Report Reviewed and Image Reviewed
ECG: Report Reviewed and Image Reviewed
[2024-01-06 05:03] LABS: Blood Urea Nitrogen 18 mg/dl (9-20); Calcium 8.5 mg/dl (8.4-10.2); Carbon Dioxide 28 mmol/L (22-30); Chloride 103 mmol/L (98-107); Estimated Creatinine Clearance 95 ml/min; Glucose 108 mg/dl (70-99); Magnesium 2.3 mg/dl (1.6-2.3); Potassium 3.9 mmol/L (3.5-5.1); Sodium 133 mmol/L (135-145); eGFR > 60.00
[2024-01-06] MEDS: TORADOL 15 MG IV (05:40)
[2024-01-06] MEDS: TYLENOL 1000 MG PO ×3 (05:40→21:10)
--- NOTE | 2024-01-06 05:51 | PTCARENOTE ---
Patients heart rate elevated, complaining that he was uncomfortable in bed, OOB to chair, medicated with prn toradol. patient pulling 1000 on IS
[2024-01-06] MEDS: BACTROBAN 2% OINTMENT 1 APPLIC NASAL ×2 (07:40→21:10)
[2024-01-06] MEDS: SENOKOT-S 1 TABLET PO ×2 (07:41→21:10)
[2024-01-06] MEDS: NEURONTIN 100 MG PO ×3 (07:41→21:10)
[2024-01-06] MEDS: MAGNESIUM OXIDE 500 MG PO ×2 (07:41→21:10)
[2024-01-06] MEDS: THIAMINE INJECTION 200 MG IV (07:41)
[2024-01-06] MEDS: FOLVITE 1 MG PO (07:41)
[2024-01-06] MEDS: PACERONE 200 MG PO ×3 (07:41→21:10)
[2024-01-06] MEDS: PROTONIX 40 MG PO (07:41)
[2024-01-06] MEDS: LEXAPRO 10 MG PO (07:41)
[2024-01-06] MEDS: PLAVIX 75 MG PO (07:41)
[2024-01-06] MEDS: LIDOCAINE 4% PATCH 1 PATCH TOPICAL (07:42)
[2024-01-06] MEDS: LOW STRENGTH ASPIRIN 81 MG PO (07:44)
[2024-01-06 07:51] LABS: Glucose - Point of Care 130 mg/dl (70-99)
[2024-01-06] MEDS: ProAmatine 10 MG PO ×2 (07:57→13:43)
[2024-01-06] MEDS: KCL 20 MEQ PO (08:44)
--- NOTE | 2024-01-06 09:19 | W.PN.INTV ---
Today's Communication / Plan
Recommendations
Up OOB as tolerated
Pain control
Monitor abdominal pain
Wean off of supplemental oxygen while maintaining SpO2 >90-94%
Patient is now off of insulin drip. He is now CVICU�telemetry status. Student Development Coordinator/Pulmonary service will now sign off. Please reconsult if there are any additional questions/concerns, or if patient's respiratory status deteriorates.
Outpatient pulmonary follow-up for his lung nodules
Assessment
-
Assessment: 63-year-old male former tobacco smoker with a past medical history of depression, hyperlipidemia, hypertension and prostate cancer s/p prostatectomy who presented to outside hospital ([facility]) with chest pain. Patient
initially went to outside hospital on 12/31/2023 due to chest pain X 8 days. Chest pain radiated to left arm with strenuous activity and resolved with rest. He was brought to [facility] at [facility] and found to have multivessel disease
includin% Ostial stenosis, 75% proximal and mid LAD stenosis, 90% stenosis of the ostial and proximal left circ, and 90% mid RCA with 70% mid to distal junction stenosis. Echo performed there showed preserved LVEF with apical and septal wall
hypokinesis. Patient transferred here to the hospital for cardiothoracic evaluation. On 01/04/2024, patient underwent CABG x3 and LURDES revealed global LV dysfunction with reduced LVEF at 35%, and post revascularization LVEF improved to 45% with no
new WMA. Patient tolerated procedure well with no immediate complications and was transferred to CVICU postoperatively for further care. Critical care services consulted for additional management/recommendations.
Chronic conditions SAPPHIRE STYLUS GRINDER: CAD, history of prostate cancer, hypertension, hypercholesterolemia
Impression:
#Multivessel CAD s/p CABG x 3 (POD#2)
#Anemia
#Former tobacco smoker
#Multiple pulmonary nodules
Plan:
Pt tolerated extubation on 01/04/2024
Continue supplemental O2 and wean as tolerated to maintain SpO2 >90-94%
Encourage incentive spirometer
Willow has been removed
Maintain MAP>65
Replete electrolytes with K>4, Mg>2
Pain control
Monitor chest tube output (L & R pleural chest tubes to negative bulb suction)
Monitor hemoglobin
Monitor platelet count and coags
Transfuse blood product if needed
CT surgery managing chest tubes
Monitor blood sugar with goal BG 140-180mg/dL
Insulin SQ supplementation as needed
Aspiration precautions
DVT prophylaxis
Early nutrition
Early mobilization
Follow up CT chest recommended for his pulmonary nodules, all of which are <6mm and appear low risk. Plus, the calcified nodule in his superior LLL is a calcified granuloma, meaning this specific nodule does not need additional radiographic
surveillance. I would recommend repeat CT chest in 3-6 months given pt is a former tobacco smoker and has Hx of prostate cancer.
Patient is now off of insulin drip. He is now CVICU�telemetry status. Student Development Coordinator/Pulmonary service will now sign off. Thank you for allowing us to be involved in the care of this patient. Please reconsult if there are any additional
questions/concerns, or if patient's respiratory status deteriorates.
Total time spent today was 55 minutes for this encounter. Time includes reviewing laboratory test/imaging results, reviewing pertinent medical records, obtaining and reviewing medical history, performing an appropriate exam, ordering medications,
tests and procedures. Time also includes documentation of this encounter, coordinating patient care and communicating with other healthcare professionals. Total time does not include separately billed tests performed on this date of service.
Data:
CXR 01-06-2024:
1. Recent CABG surgery with chest tubes remaining in place.
2. Moderate bilateral lower lobe atelectasis.
3. Small bilateral pleural effusions.
CXR 01-05-2024:
1. Interval extubation.
2. Interval decrease in mild subsegmental atelectasis in the lower lungs.
3. Stable mild left to right mediastinal shift with moderate volume loss in the right lung.
4. Chest tubes and right IJ central venous catheter remaining in place following CABG surgery.
CXR 01-04-2024:
1. Endotracheal tube, chest tubes, and right IJ central venous catheter in place following CABG surgery.
2. Moderate left to right mediastinal shift and large bilateral pericardial fat pads which appears unchanged from before surgery.
3. Mildly decreased bilateral lung volumes with multiple thin bands of subsegmental atelectasis in the mid and lower lungs.
CT Chest without Contrast 01-03-2024:
No aortic aneurysm. Normal aortic branch pattern. Minor calcified plaque of the aortic branches without stenosis.
There is a large amount of high density along the coronary arteries, consistent with calcified plaque.
Probable combination of mild atelectasis and nonspecific bronchiolitis in the posterior right lung base.
Calcified granulomas.
There are a few small solid and groundglass nodules, as described measuring up to 5 mm. Nonspecific. Consider follow-up in one year if the patient is at increased risk. Pulmonary nodule advisory Board notified by radiology department front office
staff.
Subjective Dataa
Subjective Data
Date of Service:
Date of Service: January 06, 2024
Chief Complaint: Student Development Coordinator Follow Up and Pulmonary Follow Up
Subjective:
Patient seen today and he was sitting in chair in no acute distress. On room air breathing comfortably. SpO2 91%, HR: 92 and BP 138/73. He is overall miserable, saying that he is too hot, has some abdominal discomfort, did not get sleep
overnight, and he is feeling overall generalized weakness. He feels depressed because he feels like he should be improving faster than he already is. I did try to encourage him to remain positive and optimistic. He denies headache, nausea, fevers
or chills.
Review of Systems
General: Other (Negative unless mentioned above)
Objective Data
Data Reviewed
Vital Signs / I&O / Oxygen:
Vital Signs
Temp Pulse Resp BP Pulse Ox
97.8 F 77 18 126/70 92
01/06/24 08:00 01/06/24 09:00 01/05/24 16:19 01/06/24 09:00 01/06/24 09:53
Intake and Output
01/05/24 01/06/24 01/07/24
06:59 06:59 06:59
Intake Total 1287.1 / 1287.1 1047 / 1047 960 / 960
Output Total 3765 / 3765 430 / 430 350 / 350
Balance -2477.9 / -2477.9 617 / 617 610 / 610
SaO2 [SIMV] 99
SaO2 92
Nasal Cannula flow liters per 3
minute
Physical Exam
General: Respiratory Distress (negative) and Comfortable
HEENT: Normocephalic, Anicteric and Moist Mucous Membranes
Cardiovascular: S1-S2 and Peripheral Edema (negative)
Respiratory: Wheeze (negative), Crackles (Bibasilar), Rhonchi (negative), Non-Labored Respirations and Chest Tube (Right and left pleural chest tubes to bulb suction)
GI: Soft, Non Distended, Non Tender and Normal Bowel Sounds
Neurology: AO x 3 and Tremors (negative)
Skin: Warm and Dry
Labs/Micro/Reports
Lab Data
01/06/24 04:13
01/06/24 04:13
--- NOTE | 2024-01-06 09:27 | W.PN.CD ---
Today's Communication / Plan
-
-Continue supportive care.
-Watch for delirium tremens
Impression / Plan
-
BACKGROUND: 63M with HTN, HLD, and prostate ca s/p CABG 01/04/24)
NSTEMI
CAD S/P CABG x 3 (COATES-LAD, QUE-OM, SVG-PDA) on 01/04/[address] Smith
-EF 35%, post 45% without new WMA
-EKG stable new iRBBB
-Out of bed to the chair
-IS encouraged
-Ambulating.
-Metoprolol started but developed hypotension. Holding beta-kanchan for now.
-Sinus tach with ambulation. Currently on amiodarone.
-May have to start beta-kanchan at low-dose once little more stable
Dyslipidemia
-LDL above goal, atorvastatin increased to 40mg daily
HTN, agents on hold, follow BP
High risk for alcohol withdrawal with history of 10 beers per day
SUBJECTIVE:
Feeling better. S/p extubation on 01/04/2024.
Physical Exam
Vital Signs/Labs
Vital Signs
Temp Pulse Resp BP Pulse Ox
97.8 F 77 18 126/70 94
01/06/24 08:00 01/06/24 09:00 01/05/24 16:19 01/06/24 09:00 01/06/24 08:07
01/05/24 01/06/24 01/07/24
06:59 06:59 06:59
Actual Weight 83.1 kg 86 kg
01/06/24 04:13
01/06/24 04:13
PT 16.6 Sec (11.4-14.6) H 01/04/24 13:22
INR 1.37 01/04/24 13:22
APTT 32.0 Sec (23.4-35.0) 01/04/24 13:22
Magnesium 2.3 mg/dl (1.6-2.3) 01/06/24 04:13
Triglycerides 141 mg/dl (10-149) 01/03/24 11:14
LDL Cholesterol, Calc 76 mg/dl 01/03/24 11:14
VLDL Cholesterol, Calc 28 mg/dl (0-30) 01/03/24 11:14
HDL Cholesterol 78 mg/dl 01/03/24 11:14
Physical Exam
Constitutional: No acute distress and Comfortable
EENT: Anicteric and Moist mucous membranes
Cardiovascular: Rhythm & rate is regular, Pedal edema is absent, Systolic murmur absent and JVD present
Respiratory: Respiratory effort normal, Lungs clear to auscul. and Wheeze Absent
GI: Soft, Distention absent and Non tender
Neuro/Psych: Alert and AO x 3
Data Reviewed
-
Date of Service: January 06, 2024
Medical Decision Making: Reviewed Test Results and Independent Historian Assessment
EKG: Tracing Personally Visualized and interpreted
Echo: Report Reviewed by me
Labs: Labs Reviewed by me
Old Records: Reviewed
--- NOTE | 2024-01-06 09:43 | PTCARENOTE ---
Pt received sitting OOB to chair. Lidocaine patch applied to upper back/neck per patient request. Complaint of lightheadedness and dizziness that he states he's feeling 'all the time.' SBP 110s - 130s. MAP > 65. HR observed 70s -80s at rest and 100s
- 110s with activity. SaO2 91-94% on room air. Diminished bases. Incentive spirometer witnessed for 1,000ml. Deep breathing encouraged. Sternal incision approximated with surgical glue. Right groin and right knee C/D/I. V wires insulated. Pleural
tubes to bulb suction. (R) IJ cordis and #18 in (L) FA flushed and patent. Pt ambulated hallways with minimal assistance.
[2024-01-06] MEDS: LASIX 20 MG IV (11:18)
[2024-01-06] MEDS: KCL 10 MEQ PO (11:18)
[2024-01-06 12:17] LABS: Glucose - Point of Care 116 mg/dl (70-99)
[2024-01-06] MEDS: NSS IV (13:11)
[2024-01-06 17:47] LABS: Glucose - Point of Care 120 mg/dl (70-99)
[2024-01-06] MEDS: LIPITOR 40 MG PO (17:53)
[2024-01-06] MEDS: ProAmatine 5 MG PO (17:53)
--- NOTE | 2024-01-06 18:24 | PTCARENOTE ---
SaO2 > 90% on room air. Pt did laps around the unit x3. HR 70s - 80s at rest and increased to 110s while ambulating. Left pleural tube with 55ml serosanguineous output and right pleural tube with 65 serosanguineous output. SBP 120s - 140s since
12:00 Midodrine 10mg PO administration. Discussed with JOHN Ricci. Midodrine dosed decreased to 5mg PO for 18:00 and future doses.
--- NOTE | 2024-01-06 20:00 | PTCARENOTE ---
assumed care of pt from previous RN. pt A&Ox4, resting in bed at time of assessment. pt SR on tele monitor, HR 80s-90s. temp epicardial v-wires insulated. POX 95% on 2 L NC. R & L pleural CTs to bulb suction, draining serosanguineous drainage. abd
s/n, +BS. pt incontinent. brief on, dry. surgical sites stable. PIV leaking. will put in new PIV. see worklist for complete nursing assessment, interventions, VS, and I&Os.
[2024-01-06 21:08] LABS: Glucose - Point of Care 113 mg/dl (70-99)
[2024-01-06] MEDS: VITAMIN B1 100 MG PO (21:10)
[2024-01-06] MEDS: ATIVAN 0.5 MG PO (21:31)
[2024-01-07] VITALS (24 sets, daily range): BP systolic 84–157; BP diastolic 55–90; PULSE 96; O2SAT 95–99; BMI 27.4
--- NOTE | 2024-01-07 00:26 | PTCARENOTE ---
pt reassessed. VSS. pt OOB to bathroom on his own. pt asked to use urinal so RN is able to measure U/O. POX 94-95% on 2 L NC. inhaler ordered by CVPA for wheezing. RT notified.
[2024-01-07] MEDS: XOPENEX 1.25 MG INHALANT SOLUTION INH (00:34)
--- NOTE | 2024-01-07 04:20 | PTCARENOTE ---
VSS. SR on tele-monitor. tachycardia on monitor w/ activity. pt admits CERON. POX 95% on 2 L NC. AM labs collected and sent.
[2024-01-07 04:37] LABS: Hematocrit 26.9 % (39.0-52.0); Hemoglobin 8.7 g/dL (13.0-18.0); Mean Corp Hgb Conc. 32.3 g/dL (33.0-37.0); Mean Corpuscular Hgb 29.3 pg (27.0-31.0); Mean Corpuscular Volume 90.6 fL (80.0-94.0); Mean Platelet Volume 10.3 fL (7.4-10.4); Platelet Count 204 10^3/uL (130-400); Red Blood Cell Count 2.97 10^6/uL (4.70-6.10); White Blood Cell Count 12.3 10^3/uL (4.8-10.8)
--- NOTE | 2024-01-07 04:42 | W.PN.CT ---
Today's Communication / Plan
-
Plan:
-No major issues overnight. Hemodynamically and neurologically intact
-Off all drips
-Noted to be hypotensive postop after receiving Flomax and BB, required Midodrine, d/c'd last night as pt noted to be hypertensive (SBP 163)
-Will consider low dose Toprol XL. Pt noted to be tachycardic with ambulation. Currently on Amiodarone
-Cont. current meds (ASA, Plavix, Amiodarone, Lipitor, Thiamine, Folic Acid, holding narcotics)
-Consider d/c of chest tubes: R pleural , L pleural
-Hyponatremia has resolved, 137 today was 133 yesterday. Cont. Fluid restriction. Received 20mg IV Lasix yesterday
-D/C cordis
-Maintain temporary PW (will cut before d/c home)
-OOB into chair/Ambulate
-Encourage use of IS
-Wean off of O2 as tolerated
-Monitor for Delirium Tremens given daily 10 beers consumption
Assessment / Plan
-
Assessment:
-S/P Cabg x 3 (andre- lad, renee- om, svg - pda, on pump), by Dr. Smith, 01/04/24, pod#2
-Severe 3v CAD
-USA
-ICM (LVEF 35%, improved to 45% postop per intraop LURDES)
-Scattered mild atheroma of desc. aorta and focal atheroma of aortic arch
-HTN
-Hyperlipidemia
-Depression
-Former tobacco use
-Daily ETOH use (10 beers/day)
-Hx prostate ca S/P prostatectomy
-S/p repair of left shoulder fx
-Acute postop blood loss/Anemia (stable without blood transfusion)
-Acute postop atelectasis/pleural effusion
-Acute postop hypovolemia
-Acute postop EKG consistent with acute pericarditis (+rub)
-Acute postop hypotension/orthostasis
-Acute postop hyponatremia, 133
Subjective
Procedure
S/P Cabg x 3 (andre- lad, renee- om, svg - pda, on pump), by Dr. Smith, 01/04/24
-
Date of Service: January 07, 2024
Objective Data
-
PT 16.6 Sec (11.4-14.6) H 01/04/24 13:22
INR 1.37 01/04/24 13:22
APTT 32.0 Sec (23.4-35.0) 01/04/24 13:22
Vital Signs
Vital Signs
Temp Pulse Resp BP Pulse Ox
98.4 F 134 16 132/73 95
01/07/24 00:00 01/07/24 04:30 01/07/24 00:37 01/07/24 04:00 01/07/24 04:00
CT Intake/Output/Weight
01/06/24 01/06/24 01/07/24
06:59 18:59 06:59
Intake Total 480 / 1047 1440 / 1460 20 / 1460
Output Total 45 / 430 370 / 380 10 / 380
Balance 435 / 617 1070 / 1080 10 / 1080
SaO2: 95
[2024-01-07 05:02] LABS: Blood Urea Nitrogen 11 mg/dl (9-20); Calcium 8.6 mg/dl (8.4-10.2); Carbon Dioxide 29 mmol/L (22-30); Chloride 102 mmol/L (98-107); Estimated Creatinine Clearance > 125 ml/min; Glucose 102 mg/dl (70-99); Magnesium 2.4 mg/dl (1.6-2.3); Sodium 137 mmol/L (135-145); eGFR > 60.00
--- NOTE | 2024-01-07 07:00 | PTCARENOTE ---
Bedside walking rounds report received. Patient seen on rounds oob in chair: sinus tach on monitor at rest: rates in the 120's. Ed B PA-c aware and Sonia ct surg LEGAL ADVISOR aware : no new orders give am beta kanchan and amio. See flowrecord for remaining
assessments.
[2024-01-07] MEDS: LOW STRENGTH ASPIRIN 81 MG PO (07:46)
[2024-01-07] MEDS: NEURONTIN 100 MG PO ×3 (07:46→21:28)
[2024-01-07] MEDS: PACERONE 200 MG PO ×3 (07:47→21:32)
[2024-01-07] MEDS: LEXAPRO 10 MG PO (07:47)
[2024-01-07] MEDS: MAGNESIUM OXIDE 500 MG PO ×2 (07:47→19:34)
[2024-01-07] MEDS: PROTONIX 40 MG PO (07:47)
[2024-01-07] MEDS: PLAVIX 75 MG PO (07:58)
[2024-01-07] MEDS: TOPROL XL 12.5 MG PO (07:58)
[2024-01-07] MEDS: VITAMIN B1 100 MG PO ×2 (07:59→19:33)
[2024-01-07] MEDS: TYLENOL 1000 MG PO ×2 (07:59→21:28)
[2024-01-07] MEDS: BACTROBAN 2% OINTMENT 1 APPLIC NASAL ×2 (08:00→21:28)
[2024-01-07] MEDS: LIDOCAINE 4% PATCH 1 PATCH TOPICAL (08:00)
[2024-01-07] MEDS: FOLVITE 1 MG PO (08:00)
[2024-01-07] MEDS: SENOKOT-S PO (08:05)
[2024-01-07] MEDS: NSS IV (10:48)
--- NOTE | 2024-01-07 10:49 | CM ---
Reviewed chart. Met with Mr. Perez to review discharge plans. He states he is feeling well. He states he ambulated in the hallway. He states he maybe able to go home soon. He states prior to admission he resides with his mother in three
story home with one step to enter. He states his bedroom is on the first floor. He states he has a bathroom on the first floor but does not have a shower. He states he has to go up a full flight of steps to get to bathroom with a shower. He states
he has a stair glide for his mother that he can use to go up and down the stairs if needed. He states he does not have any DME in the home for him. We reviewed a home visit by the Cardiothoracic Transitional Care Nurse. He is agreeable to a home
visit. Medical work-up in progress. The discharge plan is to return home with his mother and a home visit by the Cardiothoracic Transitional Care Nurse when medically stable.
--- NOTE | 2024-01-07 11:45 | PTCARENOTE ---
Assisted back to bed: Right and left pleural chest tubes dc. Right IJ cordis dc. Room air. NSR. ST with exertion. Ambulating ad irina.
--- NOTE | 2024-01-07 14:30 | PTCARENOTE ---
No acute changes. Vitals stable after walk. ambulated hallway greater than 4 x today. See post activity vitals.
[2024-01-07] MEDS: TYLENOL PO (15:13)
[2024-01-07] MEDS: LIPITOR 40 MG PO (17:25)
[2024-01-07 17:26] LABS: Glucose - Point of Care 113 mg/dl (70-99)
[2024-01-07] MEDS: SENOKOT-S 1 TABLET PO (19:34)
[2024-01-07] MEDS: ATIVAN 0.5 MG PO (21:28)
--- NOTE | 2024-01-07 22:02 | PTCARENOTE ---
Patient OOB to chair, ambulating independently. Requesting PO Ativan for sleep, provide notified.
[2024-01-07 22:36] LABS: Glucose - Point of Care 114 mg/dl (70-99)
[2024-01-08 03:00] VITALS: BP 151/81
[2024-01-08 03:12] VITALS: BP 151/81
[2024-01-08 03:15] VITALS: BMI 27.5
[2024-01-08 03:47] LABS: Hematocrit 30.8 % (39.0-52.0); Mean Corp Hgb Conc. 32.5 g/dL (33.0-37.0); Mean Corpuscular Hgb 29.6 pg (27.0-31.0); Mean Corpuscular Volume 91.1 fL (80.0-94.0); Mean Platelet Volume 10.2 fL (7.4-10.4); Platelet Count 325 10^3/uL (130-400); Red Blood Cell Count 3.38 10^6/uL (4.70-6.10); Red Cell Dist. Width 13.2 % (11.5-14.5); White Blood Cell Count 14.7 10^3/uL (4.8-10.8)
[2024-01-08 04:12] LABS: Blood Urea Nitrogen 10 mg/dl (9-20); Calcium 9.2 mg/dl (8.4-10.2); Carbon Dioxide 26 mmol/L (22-30); Chloride 102 mmol/L (98-107); Estimated Creatinine Clearance > 125 ml/min; Glucose 101 mg/dl (70-99); Magnesium 2.5 mg/dl (1.6-2.3); Potassium 3.9 mmol/L (3.5-5.1); Sodium 135 mmol/L (135-145); eGFR > 60.00
[2024-01-08] MEDS: TYLENOL 1000 MG PO (05:04)
--- NOTE | 2024-01-08 05:27 | PTCARENOTE ---
Patient OOB to walk in room, assessment unchanged.
--- NOTE | 2024-01-08 06:37 | W.PN.CT ---
Today's Communication / Plan
-
Plan:
-No major issues overnight. Hemodynamically and neurologically intact
-Off all drips
-Noted to be tachycardic with ambulation, sinus. On Amiodarone and Toprol XL
-Cont. current meds (ASA, Plavix, Amiodarone, Lipitor, Thiamine, Folic Acid, holding narcotics)
-Will d/c temporary PW (will cut before d/c home)
-OOB into chair/Ambulate
-F/U 2-view CXR
-Encourage use of IS
-Wean off of O2 as tolerated
-No Delirium Tremens thus far
-Home likely today
Assessment / Plan
-
Assessment:
-S/P Cabg x 3 (andre- lad, renee- om, svg - pda, on pump), by Dr. Smith, 01/04/24, pod#4
-Severe 3v CAD
-USA
-ICM (LVEF 35%, improved to 45% postop per intraop LURDES)
-Scattered mild atheroma of desc. aorta and focal atheroma of aortic arch
-HTN
-Hyperlipidemia
-Depression
-Former tobacco use
-Daily ETOH use (10 beers/day)
-Hx prostate ca S/P prostatectomy
-S/p repair of left shoulder fx
-Acute postop blood loss/Anemia (stable without blood transfusion)
-Acute postop atelectasis/pleural effusion
-Acute postop hypovolemia
-Acute postop EKG consistent with acute pericarditis (+rub)
-Acute postop hypotension/orthostasis
-Acute postop hyponatremia, 133
Discussed patient care with: Cardiology, Nursing, Respiratory Therapy, Pharmacy and Care Team
Subjective
Procedure
S/P Cabg x 3 (andre- lad, renee- om, svg - pda, on pump), by Dr. Smith, 01/04/24
-
Date of Service: January 08, 2024
Pt c/o mild incisional pain and mild dizziness with ambulation yesterday (orthostasis likely from Flomax he got on POD#1), otherwise feels well
Objective Data
-
Lab Results
01/08/24 03:30
01/08/24 03:30
PT 16.6 Sec (11.4-14.6) H 01/04/24 13:22
INR 1.37 01/04/24 13:22
APTT 32.0 Sec (23.4-35.0) 01/04/24 13:22
Vital Signs
Vital Signs
Temp Pulse Resp BP Pulse Ox
98 F 79 18 151/81 93
01/08/24 03:00 01/08/24 05:00 01/08/24 03:00 01/08/24 03:12 01/08/24 05:00
CT Intake/Output/Weight
01/07/24 01/07/24 01/08/24
06:59 18:59 06:59
Intake Total 50 / 1490 345 / 825 480 / 825
Output Total 730 / 1100 50 / 50
Balance -680 / 390 295 / 775 480 / 775
SaO2: 93 (RA)
Physical Exam
-
General: Awake, Oriented and AOx3
Cardiovascular: Regular rate & rhythm, No Murmurs, No Rub and No Gallop
Respiratory: Decreased Breath Sounds (at bases, otherwise clear)
Sternum: Stable
Incision: Clean, Dry, Intact and Dressing Intact
Extremities: No Edema
Data Reviewed
-
Lab Results: Results Reviewed
Medications: Active Meds Reviewed
Chest X-Ray: Report Reviewed and Image Reviewed
ECG: Report Reviewed and Image Reviewed
[2024-01-08 07:41] VITALS: BP 111/71; BP 122/74; BP 136/78; PULSE 102; PULSE 89; PULSE 97
[2024-01-08 07:42] VITALS: BP 122/74
[2024-01-08 07:43] VITALS: BP 111/71
--- NOTE | 2024-01-08 08:00 | PTCARENOTE ---
pt received from nightshift RN. pt ambulating without difficulty, transferred to room 2253. AAOX3. denies pain. SR on telemtry. +pulses. trace edema. pt on room air, sat 95%. lung sounds diminished. IS 1000. active bowel sounds. voiding without
difficulty. surgical sites CDI. See worklist for full nursing assessment and interventions. pt updated on plan of care for the day.
[2024-01-08] MEDS: BACTROBAN 2% OINTMENT 1 APPLIC NASAL (08:38)
[2024-01-08] MEDS: PLAVIX 75 MG PO (08:38)
[2024-01-08] MEDS: PACERONE 200 MG PO (08:38)
[2024-01-08] MEDS: FOLVITE 1 MG PO (08:38)
[2024-01-08] MEDS: PROTONIX 40 MG PO (08:38)
[2024-01-08] MEDS: LOW STRENGTH ASPIRIN 81 MG PO (08:38)
[2024-01-08] MEDS: NEURONTIN 100 MG PO (08:38)
[2024-01-08] MEDS: VITAMIN B1 100 MG PO (08:38)
[2024-01-08] MEDS: MAGNESIUM OXIDE 500 MG PO (08:38)
[2024-01-08] MEDS: SENOKOT-S PO (08:39)
[2024-01-08] MEDS: LIDOCAINE 4% PATCH 1 PATCH TOPICAL (08:39)
[2024-01-08] MEDS: TOPROL XL 12.5 MG PO (08:39)
[2024-01-08] MEDS: LEXAPRO 10 MG PO (08:41)
--- NOTE | 2024-01-08 09:06 | W.DCSUMMARY ---
Discharge Summary
Discharge Data
Date of Admission: 01/03/24
Date of Discharge: 01/08/24
Total time spent discharging patient (in min): 45
-
Pending Results: No
Hospital Course
Primary care physician:
Holland Ambrosio
Outpatient overcoiler:
Sascha Biggs
Inpatient consultants:
CBC, textile machinery instructor
Procedures:
1. Coronary Artery Bypass Surgery X3 (COATES-LAD, QUE-OM, SVG to PDA)
Primary Diagnosis:
1. Multivessel coronary disease involving the left main
Secondary Diagnoses:
1. Hypertension
2. Hyperlipidemia
3. Prostate cancer status post prostatectomy
4. Depression
5. EtOH abuse
HPI: 63-year-old male with complaints of chest pain presented to [facility] and was found to have multivessel disease transferred to [facility] on 01/02 for preoperative CABG workup.
Hospital course:
Patient on 425 was transferred from [facility] and preoperative studies were initiated. While you were at [facility] you stated you were depressed with suicidal thoughts there you were started on lexapro. He was taken to the CV OR on 01/03 for
a CABG with Dr. Smith. Postoperatively he returned to the CVICU on Levophed and Precedex. He was given 3 albumins due to high urine output and Levophed was weaned off. Precedex was weaned off and patient was extubated by 1800 and aspirin was
started. 01/04 postoperative day #1 insulin drip was turned off patient was D lined. Ag catheter and mediastinal chest tubes were removed pleural chest tube was bulb and he was started on low-dose beta-blockers and Plavix. Patient was
downgraded to telemetry status, however due to orthostatic hypotension patient's metoprolol, amiodarone, and Flomax were discontinued and midodrine was started. On 01/05 postoperative day #2 midodrine was continued and p.o. amnio was resumed.
Pleural chest tube remain due to output and patient was diuresed with 20 mg of IV Lasix. On 01/06 postoperative day #3 Amio and beta-blockers were resumed. However patient continues to have mild lightheadedness and positive tilts although it does
not prohibit the patient from ambulation. On 01/07 postoperative day #4 patient was started on Jardiance he reports mild improvement in lightheadedness and patient was deemed stable for discharge. Patient was discharged with a 30-day prescription
for Jardiance and was instructed to follow-up with his cardiology office for further prescriptions.
Home medication changes:
See below
Discharge Plan
-
Patient Disposition: Home (Routine Discharge)
Discharge Diagnosis/Procedures: CABG
Condition: Good
Diet: 2 Gram Sodium
Activity: No strenuous activity
Driving Restrictions: Not until seen by your Dr
Bathing Restrictions: OK to Shower
Other Services: Cardiac Rehab
Specialty Instructions: Weigh Daily- Call MD for wt gain/loss 3 lbs overnight/5 lbs in 1 week
Activity Restrictions/Additional Instructions:
Please call [facility] to schedule your first visit at [phone]
ACTIVITY:
-No strenuous activity: no heavy lifting, pushing, pulling anything over 15 pounds for one month
-continue to use stairs as tolerated
DRIVING RESTRICTIONS:
-No driving for one month or until approved by your surgeon
WOUND CARE:
-Shower daily. Use soap & water.
-No lotions, creams or powders on incision area.
DIET:
-continue a low fat/low cholesterol diet.
-IF you are diabetic, continue carb controlled diet.
CARDIAC REHAB:
-Please make appointment to start in 5-6 weeks with your local hospital program. (See Cardiac Rehabilitation Discharge Booklet).
SPECIALTY INSTRUCTIONS:
-Weigh yourself daily. Call your physician for any weight gain/loss of 3 lbs overnight or 5 lbs in one week.
-REPORT any clicking noise or uneven appearance of your sternum to your surgeon immediately.
-If you smoke, you are instructed to quit. The [place] smoking hotline phone number is [phone]
Referrals:
CT Transitional Care Nurse [Outside] (The Cardiothoracic Transitional Care Nurse will call you to set up a visit in 1-2 days.)
Carlos Alicia MD [Active] - in one month
(Pulmonary Medicine:
Lung Nodules seen on recent CT Chest 01/03/2024)
Og Smith MD [Active] - 02/11/24 9:30 am
Simona Cantu MD [Active] - 02/25/24 3:00 pm
Holland Ambrosio MD [Family Provider] -
Prescriptions:
New
atorvastatin 40 mg Tablet
40 mg PO QPM Qty: 60 1RF
clopidogrel 75 mg Tablet
75 mg PO DAILY Qty: 90 3RF
pantoprazole 40 mg Tablet,Delayed Release (Dr/Ec)
40 mg PO DAILY Qty: 90 3RF
metoprolol succinate 25 mg Tablet Extended Release 24 Hr
12.5 mg PO DAILY Qty: 60 1RF
escitalopram oxalate 10 mg Tablet
10 mg PO DAILY Qty: 60 0RF
Jardiance 10 mg Tablet
10 mg PO DAILY Qty: 30 0RF
acetaminophen [Tylenol Extra Strength] 500 mg Tablet
1,000 mg PO TID@0600,1400,2200 PRN (Reason: mild pain) Qty: 0 0RF
aspirin [Children's Aspirin] 81 mg Tablet,Chewable
81 mg PO DAILY Qty: 0 0RF
Continued
lorazepam 1 mg Tablet
1 mg PO DAILY PRN (Reason: anxiety)
Discontinued
atorvastatin 20 mg Tablet
20 mg PO DAILY
amlodipine-benazepril 5-20 mg Capsule
1 cap PO DAILY
Care Plan Goals
Care Plan Goals:
Problem: Readiness for enhanced knowledge related to diagnosis and treatment plan
Goal: Understand your diagnosis and treatment plan needs, including medications if applicable.
Instructions: Know your diagnosis, underlying causes and treatment plan options, including medications if applicable. Consult with your health care team to learn about your diagnosis and treatment plan, including medications if applicable.
Discharge Date and Time
Print Language: CROATIAN
[2024-01-08 09:49] LABS: Glucose - Point of Care 144 mg/dl (70-99)
[2024-01-08] MEDS: JARDIANCE 10 MG PO (09:49)
[2024-01-08 11:19] VITALS: BP 128/71
--- NOTE | 2024-01-08 11:49 | W.PN.CD ---
Addendum entered and electronically signed by Benjamin Pinedo MD 01/08/24 15:19:
CDI addendum:
NSTEMI/Acute HFrEF
Original Note:
Today's Communication / Plan
-
-Continue current doses of amiodarone and metoprolol succinate.
-Recommend adding Jardiance or Farxiga for GDMT.
-Further GDMT limited by low blood pressure.
-Follow-up with Cardiology as an outpatient.
Impression / Plan
-
BACKGROUND: 63M with HTN, HLD, and prostate ca s/p CABG on 01/04/24.
NSTEMI/HFrEF:
-CAD S/P CABG x 3 (COATES-LAD, QUE-OM, SVG-PDA) on 01/04/[address] Smith
-EF 35%, post 45% without new WMA
-Continue current doses of amiodarone and metoprolol succinate.
-Recommend adding Jardiance or Farxiga for GDMT.
-Further GDMT limited by low blood pressure.
Dyslipidemia
-LDL above goal, atorvastatin increased to 40 mg daily; continue.
HTN -stable/fairly controlled.
High risk for alcohol withdrawal with history of 10 beers per day
SUBJECTIVE:
No major events overnight.
Physical Exam
Vital Signs/Labs
Vital Signs
Temp Pulse Resp BP Pulse Ox
97.5 F 83 16 111/71 95
01/08/24 11:18 01/08/24 11:18 01/08/24 11:18 01/08/24 08:39 01/08/24 11:18
01/07/24 01/08/24 01/09/24
06:59 06:59 06:59
Actual Weight 84.2 kg 84.4 kg
01/08/24 03:30
01/08/24 03:30
PT 16.6 Sec (11.4-14.6) H 01/04/24 13:22
INR 1.37 01/04/24 13:22
APTT 32.0 Sec (23.4-35.0) 01/04/24 13:22
Magnesium 2.5 mg/dl (1.6-2.3) H 01/08/24 03:30
Triglycerides 141 mg/dl (10-149) 01/03/24 11:14
LDL Cholesterol, Calc 76 mg/dl 01/03/24 11:14
VLDL Cholesterol, Calc 28 mg/dl (0-30) 01/03/24 11:14
HDL Cholesterol 78 mg/dl 01/03/24 11:14
Physical Exam
Constitutional: No acute distress and Comfortable
EENT: Anicteric
Cardiovascular: Rhythm & rate is regular, Pedal edema is absent, Systolic murmur absent and S1S2 is normal
Respiratory: Respiratory effort normal and Lungs clear to auscul.
GI: Soft
Neuro/Psych: AO x 3
Other: Skin (Warm, dry, intact)
Data Reviewed
-
Date of Service: January 08, 2024
EKG: Tracing Personally Visualized and interpreted (Telemetry: Sinus rhythm)
Medical Tests (PFT, Pathology etc): Discussed with Physician (CT Surgery team)
Labs: Labs Reviewed by me
Critical Care Time (in minutes): 32
--- NOTE | 2024-01-08 11:50 | CM ---
Pricing on Jardiance 10 mg is $20 for a 30 day supply retail and $40 mail order 100 day. Patient will need a prior authorization called into [phone]. I will place a free 30 day coupon in the patient's red discharge folder.
Pricing on Farxiga 10mg for a 30 day supply retail $19.09 for 30 days, will also need a prior authorization.
[2024-01-08] MEDS: NSS IV (12:27)
[2024-01-08 13:17] LABS: Glucose - Point of Care 104 mg/dl (70-99)
--- NOTE | 2024-01-08 15:01 | PN.CDI ---
CDI
- -
CDI:
Physician Documentation Request
Admit Date: 01/03/24 10:40
Dear Doctor Shahida,
Please review the following and provide your response in the progress notes.
Clinical Indicators:
- 01/07 Cardiology note 'HFrEF' without specific acuity.
- 01/02 H&P no pmh CHF
- 01/05 20mg IV Furosemide given x 1
Please clarify which of the following accurately represents the acuity of the HFrEF:
Acute HFrEF
Acute on chronic HFrEF
Chronic HFrEF
Other
Use of terms such as suspected, likely, concern for, or probable (associated with a specific diagnosis that is being evaluated, monitored, or treated as if it exists) are acceptable and can be coded in the inpatient setting, when documented at the
time of discharge.
Thank you,
Ladonna Kaye RN
CDI Specialist
Please use your independent medical judgment in providing your response.
== END 2024-01-08 15:00 | disposition home or self-care (01) | DRG 235 ==
LOC: IVU 10:40
PROVIDERS: Clinical Nurse Specialist Acute Care; ADMITTING PHYSICIAN Thoracic Surgery (Cardiothoracic Vascular Surgery); CONSULT PHYSICIAN Internal Medicine; CONSULT PHYSICIAN Internal Medicine Critical Care Medicine; FAMILY PHYSICIAN Internal Medicine
PROC: 5A1221Z Performance of Cardiac Output, Continuous (ICD-10-PCS; 2024-01-03)
PROC: 06BP4ZZ Excision of Right Saphenous Vein, Percutaneous Endoscopic Approach (ICD-10-PCS; 2024-01-03)
PROC: B24BZZ4 Ultrasonography of Heart with Aorta, Transesophageal (ICD-10-PCS; 2024-01-03)
PROC: 02100Z9 Bypass Coronary Artery, One Artery from Left Internal Mammary, Open Approach (ICD-10-PCS; 2024-01-03)
PROC: 021009W Bypass Coronary Artery, One Artery from Aorta with Autologous Venous Tissue, Open Approach (ICD-10-PCS; 2024-01-03)
PROC: 02100Z8 Bypass Coronary Artery, One Artery from Right Internal Mammary, Open Approach (ICD-10-PCS; 2024-01-03)
DX: I21.4 Non-ST elevation (NSTEMI) myocardial infarction (principal); I50.21 Acute systolic (congestive) heart failure; D62 Acute posthemorrhagic anemia; I25.10 Atherosclerotic heart disease of native coronary artery without angina pectoris; I10 Essential (primary) hypertension; F32.A Depression, unspecified; F10.10 Alcohol abuse, uncomplicated; E78.00 Pure hypercholesterolemia, unspecified
CPT/HCPCS: 71045; 71046; 71250; 80048; 80053; 80061; 81003; 82330; 82565; 82805; 82947; 82962; 83036; 83735; 84132; 84302; 84520; 85014; 85018; 85025; 85027; 85049; 85610; 85730; 86803; 86850; 86900; 86901; 86920; 93005; 93312; 93320; 93325; 93880; 94002; 94640; C1713; P9045; P9047

== ENCOUNTER → 2024-06-18 14:23 | Outpatient (REF) | payer BC, SELFPAY | LOC: DHSLP 14:23 | PROVIDERS: ATTENDING PHYSICIAN Internal Medicine Critical Care Medicine; FAMILY PHYSICIAN Internal Medicine | DX: G47.30 Sleep apnea, unspecified (principal); R06.83 Snoring | CPT/HCPCS: 95800 ==